=== PATIENT | male | born 1975 | race Caucasian/White ===

== ENCOUNTER 2022-03-29 09:10 | Outpatient (CLI) | payer OTHER, SELFPAY ==
[2022-03-29 15:50] LABS: Albumin* 4.7 g/dL (3.3-5.0); Chloride* 105 mmol/L (96-114); Sodium* 139 mmol/L (135-149)
[2022-03-29 15:52] LABS: Cholesterol* 188 mg/dL (90-199)
[2022-03-29 15:53] LABS: Alkaline Phosphatase* 58 U/L (40-150); Aspartate Amino Transferase* 24 U/L (12-35); Bilirubin Total* 0.4 mg/dL (0.1-1.5); Blood Urea Nitrogen* 15 mg/dL (5-24); Carbon Dioxide* 24 mmol/L (20-32); Estimated Glomerular Filt Rate 93 ml/min; Glucose* 98 mg/dL (60-115); Total Protein* 7.4 g/dL (6.0-8.3); Triglycerides* 234 mg/dL (40-149)
[2022-03-29 15:54] LABS: Alanine Aminotransferase* 21 U/L (4-50); Calcium* 8.3 mg/dL (8.4-10.6); HDL Cholesterol* 35 mg/dL (>=40); LDL Cholesterol Calculated 106 mg/dL (<100)
== END 2022-03-29 09:11 | disposition home or self-care (01) ==
PROVIDERS: PCP Physician Assistant Medical; Visit Provider Physician Assistant Medical
DX: Z00.00 Encounter for general adult medical examination without abnormal findings (principal); E78.1 Pure hyperglyceridemia; E78.5 Hyperlipidemia, unspecified
CPT/HCPCS: 80053; 80061

== ENCOUNTER 2022-06-21 16:28 | Outpatient (CLI) | payer OTHER, SELFPAY ==
[2022-06-21 13:42] LABS: Cholesterol* 143 mg/dL (90-199)
[2022-06-21 13:43] LABS: Alanine Aminotransferase* 34 U/L (4-50); Aspartate Amino Transferase* 27 U/L (12-35); HDL Cholesterol* 44 mg/dL (>=40); LDL Cholesterol Calculated 69 mg/dL (<100); Triglycerides* 151 mg/dL (40-149)
== END 2022-06-21 16:29 | disposition home or self-care (01) ==
PROVIDERS: PCP Physician Assistant Medical; Visit Provider Physician Assistant Medical
DX: E78.1 Pure hyperglyceridemia (principal); E78.2 Mixed hyperlipidemia
CPT/HCPCS: 80061; 84450; 84460

== ENCOUNTER 2022-12-30 14:41 | Outpatient (CLI) | payer OTHER, SELFPAY | END 2022-12-30 14:42 | disposition home or self-care (01) | PROVIDERS: PCP Physician Assistant Medical; Visit Provider Physician Assistant Medical | DX: Z00.00 Encounter for general adult medical examination without abnormal findings (principal); E78.1 Pure hyperglyceridemia; E78.5 Hyperlipidemia, unspecified | CPT/HCPCS: 80053; 80061 ==

== ENCOUNTER 2023-06-19 09:35 | Outpatient (CLI) | payer OTHER, SELFPAY | END 2023-06-19 09:36 | disposition home or self-care (01) | LOC: NFLDREF 06-21 12:06 | PROVIDERS: PCP Physician Assistant Medical; Visit Provider Physician Assistant Medical | DX: E78.1 Pure hyperglyceridemia (principal); E78.2 Mixed hyperlipidemia | CPT/HCPCS: 80061; 84450; 84460 ==

== ENCOUNTER 2023-09-07 09:00 | Outpatient (CLI) | payer OTHER, SELFPAY | END 2023-09-07 09:01 | disposition home or self-care (01) | LOC: NFLDREF 09-11 07:12 | PROVIDERS: PCP Physician Assistant Medical; Referring Provider Physician Assistant Medical; Visit Provider Physician Assistant Medical | DX: E78.1 Pure hyperglyceridemia (principal); E78.2 Mixed hyperlipidemia | CPT/HCPCS: 80061; 84450; 84460 ==

== ENCOUNTER 2024-02-06 14:16 | Outpatient (CLI) | payer OTHER, SELFPAY | END 2024-02-06 14:17 | disposition home or self-care (01) | LOC: NFLDREF 02-10 13:37 | PROVIDERS: PCP Physician Assistant Medical; Referring Provider Physician Assistant Medical; Visit Provider Physician Assistant Medical | DX: E78.2 Mixed hyperlipidemia (principal); Z13.228 Encounter for screening for other metabolic disorders | CPT/HCPCS: 80053; 80061 ==

== ENCOUNTER 2024-02-27 09:52 | Outpatient (CLI) | payer OTHER, SELFPAY ==
--- NOTE | 2024-02-27 10:00 | CRLHL7_ITS ---
For Patients: As a result of the Century Cures Act, medical imaging exams and procedure reports are released immediately into your electronic medical record. You may view this report before your referring provider. If you have questions, please contact your health care provider. INDICATION: Suspected lipoma. COMPARISON: None. TECHNIQUE: 129 mL Isovue-370 IV contrast. FINDINGS: In the ventral anterior cook just below the tibial tuberosity there is well defined lentiform roughly 45 x 12 mm non fatty lesion with subtle thin peripheral enhancement. A thin line of fat demarcates lesion from the overlying normal thickness dermis. Deep margin abuts the tibia and medial margin of the anterior compartment muscles but does not distort remodel either bone or muscle. Internal attenuation is slightly lower than adjacent muscle. IMPRESSION: Non lipomatosis subcutaneous lesion of the ventral proximal thigh. This could be an epidermal inclusion cyst or sebaceous cyst versus other non lipomatosis neoplasm. Benign etiology favored. Consider ultrasound or a contrast MR to better characterize if there is ongoing clinical concern. Please note that all CT scans at this facility use dose modulation, iterative reconstruction, and/or weight-based dosing when appropriate to reduce radiation dose to as low as reasonably achievable. Dictated by Seng Scherer MD @ 02/28/2024 4:00:33 PM (Electronically Signed)
== END 2024-02-27 09:53 | disposition home or self-care (01) ==
LOC: CT 09:53
PROVIDERS: PCP Physician Assistant Medical; Visit Provider Surgery
DX: R22.40 Localized swelling, mass and lump, unspecified lower limb (principal)
CPT/HCPCS: 73701; Q9967

== ENCOUNTER 2024-03-12 07:45 | Day surgery (SDC) | payer OTHER, SELFPAY ==
[2024-03-12 08:12] VITALS: BMI 35.6
[2024-03-12 08:16] VITALS: BP 116/84; PULSE 63; RESP 16; TEMP 36.2; O2SAT 96
[2024-03-12] MEDS: SODIUM CHLORIDE 0.9 % (FLUSH) 10 ML SYRINGE IVF (08:26)
--- NOTE | 2024-03-12 08:33 | P.GSOP_ITS ---
Operative Note Date of procedure: 03/12/24 Pre-op diagnosis: 1. Enlarging left lower leg mass. Post-op diagnosis: Same Type of Procedure: 1. Excision of left lower leg mass. Indications: 49-year-old male was seen in clinic for evaluation of a left anterior lower leg mass that was present for 2 years. The mass was initially mobile but with time has increased in size. Patient states that initially the mass was painful but most recently it was not painful. He noticed that the mass was not moving and decided to present to clinic for removal of this mass. On clinical exam in the left lower anterior leg there was a golf ball sized mass that was flattened and attached to the superior tibia. This was not very soft to palpation but had defined orders. A leg CT was obtained for further evaluation of this mass. Leg CT showed this mass to be subcutaneous overlying the tibia but not originating from the bone. This seemed to be attached to periosteum. Given patient's clinical history and his physical exam, excision of this mass in the operating room was recommended. The procedure was discussed in detail. The risks assoc iated procedure including infection, bleeding, and the need for additional procedures were all discussed with the patient, and he agreed to proceed. Procedure Description: After discussing the risks and benefits of the procedure, the patient signed informed consent.? The operative site was marked and the patient was brought to the operating room and placed on the operating table in supine position.? Care was taken to pad the patient's pressure points.?? The patient was then Sedated by anesthesia.?? The operative site was then prepped and draped in the usual sterile fashion.? A time-out was then performed. Local anesthetic was injected at the surgical site in the left lower leg. A vertical skin incision was made with a scalpel over the mass. Dermis and subcutaneous tissues were dissected with cautery. The mass was circumferentially mobilized from soft tissue and from tibial periosteum with cautery. The mass was excised and was measuring 4 x 3.2 cm. It had white circumscribed appearance and did not appear like a lipoma. This was sent to pathology. Hemostasis achieved with cautery. The incision was then closed in layers with interrupted 2-0 and 3-0 Vicryl sutures. The skin was closed with a running 4-0 Monocryl stitch. The length of the incision was 3 cm. Steri-Strips and sterile pressure dressing were placed over the incision. The lower leg was wrapped in an Brian wrap. ? The patient was then woken and transported to the recovery area in stable condition. ? The patient tolerated the procedure well. Findings: Well-circumscribed mass white in appearance, grossly did not appear like lipoma. Anesthesia: MAC and local Surgeon: Heather Cross MD Estimated blood loss (mL): 5 Additional Specimen Information: 1. Left lower leg mass. Condition: stable Disposition: same day
--- NOTE | 2024-03-12 08:33 | W.PM.H&PU ---
History & Physical Update History & Physical Update H&P Reviewed and patient assessed: No changes noted
[2024-03-12] MEDS: LACTATED RINGERS 1000 ML 1,000 ML 100 ML IV (08:44)
[2024-03-12] MEDS: BUPIVACAINE 0.25% 30 ML INJECTION (09:03)
[2024-03-12] MEDS: LIDOCAINE 1%-EPI 1:100,000 20 ML INFILTRATI (09:03)
[2024-03-12] MEDS: CEFAZOLIN 2 GM INJ IVP (09:08)
[2024-03-12 09:35] VITALS: BP 106/64; PULSE 59; RESP 16; TEMP 36.7; O2SAT 97
--- NOTE | 2024-03-12 09:36 | W.ANESCHARGE ---
Anesthesia Charges Start Date/Time Anesthesia Start Date: 03/12/24 Anesthesia Start Time: 08:44 Stop Date/Time Anesthesia Stop Date: 03/12/24 Anesthesia Stop Time: 09:34
[2024-03-12 09:50] VITALS: BP 112/77; PULSE 58; RESP 16; O2SAT 96
[2024-03-12 10:05] VITALS: BP 117/69; PULSE 57; RESP 16; O2SAT 97
[2024-03-12 10:20] VITALS: BP 110/77; PULSE 62; RESP 16; TEMP 36.4; O2SAT 97
--- NOTE | 2024-03-12 10:23 | W.ANESCHARGE ---
Anesthesia Charges Start Date/Time Anesthesia Start Date: 03/12/24 Anesthesia Start Time: 08:44 Stop Date/Time Anesthesia Stop Date: 03/12/24 Anesthesia Stop Time: 09:34
== END 2024-03-12 10:33 | disposition home or self-care (01) ==
PROVIDERS: PCP Physician Assistant Medical; Visit Provider Surgery
PROC: (CPT 27632; principal; 2024-03-12 09:00)
DX: D17.24 Benign lipomatous neoplasm of skin and subcutaneous tissue of left leg (principal)
CPT/HCPCS: 27632; 00400; 01470; 88307; J0665; J0690; J1100; J2405; J2704; J3010; J3490; J7120

== ENCOUNTER 2025-03-05 10:35 | Outpatient (CLI) | payer OTHER, SELFPAY | END 2025-03-05 10:36 | disposition home or self-care (01) | LOC: NFLDREF 03-07 14:59 | PROVIDERS: PCP Physician Assistant Medical; Referring Provider Physician Assistant Medical; Visit Provider Physician Assistant Medical | DX: E78.2 Mixed hyperlipidemia (principal); Z13.9 Encounter for screening, unspecified; R07.9 Chest pain, unspecified; R53.83 Other fatigue | CPT/HCPCS: 80053; 80061; 82306; 82607; 84443; G0103 ==

== ENCOUNTER 2025-03-11 14:02 | Outpatient (CLI) | payer OTHER, SELFPAY ==
[2025-03-11] MEDS: PERFLUTREN LIPID MICROSPHERES 2 ML VIAL IVP (14:34)
[2025-03-11 15:04] VITALS: BP 142/70; PULSE 78; RESP 22; O2SAT 98
--- NOTE | 2025-03-11 15:25 | W.PM.STED ---
Stress Test Note Date Date of test: 03/11/25 Providers Primary care provider: Shayy Mascorro Stress test physician: Erasmo Ventura Stress Test Note Stress test ordered: Stress Echo Indication for test: Chest pain Stress test medicine: Definity Results discussion: Patient is a very nice 50-year-old gentleman who presents here for a stress echo, definity is needed, indication is chest pain, pretest EKG shows normal sinus rhythm, with a ventricular rate of 58 blood pressure 122 and 72, no acute ST wave changes are noted. Following normal [facility] protocol, patient is exercised for a total time period of 11 minutes, achieved a metabolic equivalent of 12.1 Mets, maximum heart rate is 150, which is 103% of the maximum. Test is terminated because of fulfillment of protocol, exercise tolerance is fall felt to be good. During this test there is no ST wave changes suggestive of ischemia. Review of the echo portion of by myself in the tech did not show any big wall motion abnormalities. Final report by Cardiology pending. Impression: Negative electrographic portion of stress echo, measure him subjectively negative, exercise tolerance was felt to be good Follow up suggested: Await for read by Cardiology, clinical correlation with this will be needed, patient did well, there were no complications and left this testing facility in good condition.
== END 2025-03-11 14:03 | disposition home or self-care (01) ==
LOC: STRESS 14:03
PROVIDERS: PCP Physician Assistant Medical; Visit Provider Physician Assistant Medical
DX: R07.9 Chest pain, unspecified (principal); R53.83 Other fatigue; I51.7 Cardiomegaly
CPT/HCPCS: 93016; 93325; 93351; Q9957